=== PATIENT | male | born 1970 | race Caucasian/White ===

== ENCOUNTER 2020-08-23 17:32 | Outpatient (REF) | payer BC, SELFPAY | END 2020-08-23 17:33 | disposition home or self-care (01) | LOC: HO.BBR 17:32 | PROVIDERS: PCP Internal Medicine; Visit Provider Physician Assistant Medical | DX: Z13.89 Encounter for screening for other disorder (principal) ==

== ENCOUNTER 2020-08-24 08:07 | Outpatient (REF) | payer SELFPAY ==
[2020-08-24 08:52] LABS: Cholesterol 182 mg/dL
== END 2020-08-24 08:08 | disposition home or self-care (01) ==
LOC: HO.LNC 08:07
PROVIDERS: Visit Provider Pathology Anatomic Pathology & Clinical Pathology
DX: Z13.220 Encounter for screening for lipoid disorders (principal)
CPT/HCPCS: 82465

== ENCOUNTER 2021-02-16 15:40 | Outpatient (REF) | payer BC, SELFPAY | END 2021-02-16 15:41 | disposition home or self-care (01) | LOC: HO.BBR 15:40 | PROVIDERS: Visit Provider Internal Medicine Hematology & Oncology | DX: Z13.89 Encounter for screening for other disorder (principal) ==

== ENCOUNTER 2021-04-13 15:40 | Outpatient (REF) | payer BC, SELFPAY | END 2021-04-13 15:41 | disposition home or self-care (01) | LOC: HO.BBR 15:40 | PROVIDERS: PCP Internal Medicine; Visit Provider Internal Medicine Hematology & Oncology | DX: Z13.89 Encounter for screening for other disorder (principal) ==

== ENCOUNTER 2021-06-12 15:42 | Outpatient (REF) | payer BC, SELFPAY | END 2021-06-12 15:43 | disposition home or self-care (01) | LOC: HO.BBR 15:42 | PROVIDERS: Visit Provider Internal Medicine Hematology & Oncology | DX: Z13.89 Encounter for screening for other disorder (principal) ==

== ENCOUNTER 2021-08-07 15:10 | Outpatient (REF) | payer BC, SELFPAY | END 2021-08-07 15:11 | disposition home or self-care (01) | LOC: HO.BBR 15:10 | PROVIDERS: Visit Provider Internal Medicine Hematology & Oncology | DX: Z13.89 Encounter for screening for other disorder (principal) ==

== ENCOUNTER 2021-10-02 15:04 | Outpatient (REF) | payer BC, SELFPAY | END 2021-10-02 15:05 | disposition home or self-care (01) | LOC: HO.BBR 15:04 | PROVIDERS: Visit Provider Internal Medicine Hematology & Oncology | DX: Z13.89 Encounter for screening for other disorder (principal) ==

== ENCOUNTER 2021-11-28 15:35 | Outpatient (REF) | payer BC, SELFPAY | END 2021-11-28 15:36 | disposition home or self-care (01) | LOC: HO.BBR 15:35 | PROVIDERS: Visit Provider Internal Medicine Hematology & Oncology | DX: Z13.89 Encounter for screening for other disorder (principal) ==

== ENCOUNTER 2022-05-28 13:55 | Outpatient (REF) | payer BC, SELFPAY | END 2022-05-28 13:56 | disposition home or self-care (01) | LOC: HO.BBR 13:55 | PROVIDERS: Visit Provider Internal Medicine Hematology & Oncology | DX: Z13.89 Encounter for screening for other disorder (principal) ==

== ENCOUNTER 2022-07-26 14:44 | Outpatient (REF) | payer BC, SELFPAY | END 2022-07-26 14:45 | disposition home or self-care (01) | LOC: HO.BBR 14:44 | PROVIDERS: Visit Provider Internal Medicine Hematology & Oncology | DX: Z13.89 Encounter for screening for other disorder (principal) ==

== ENCOUNTER 2022-09-25 14:54 | Outpatient (REF) | payer BC, SELFPAY | END 2022-09-25 14:55 | disposition home or self-care (01) | LOC: HO.BBR 14:54 | PROVIDERS: Visit Provider Internal Medicine Hematology & Oncology | DX: Z13.89 Encounter for screening for other disorder (principal) ==

== ENCOUNTER 2022-11-26 14:59 | Outpatient (REF) | payer BC, SELFPAY | END 2022-11-26 15:00 | disposition home or self-care (01) | LOC: HO.BBR 14:59 | PROVIDERS: Visit Provider Internal Medicine Hematology & Oncology | DX: Z13.89 Encounter for screening for other disorder (principal) ==

== ENCOUNTER 2023-01-24 14:54 | Outpatient (REF) | payer BC, SELFPAY | END 2023-01-24 14:55 | disposition home or self-care (01) | LOC: HO.BBR 14:54 | PROVIDERS: Visit Provider Internal Medicine Hematology & Oncology | DX: Z13.89 Encounter for screening for other disorder (principal) ==

== ENCOUNTER 2023-03-28 15:08 | Outpatient (REF) | payer BC, SELFPAY | END 2023-03-28 15:09 | disposition home or self-care (01) | LOC: HO.BBR 15:08 | PROVIDERS: Visit Provider Internal Medicine Hematology & Oncology | DX: Z13.89 Encounter for screening for other disorder (principal) ==

== ENCOUNTER 2023-09-02 13:53 | Outpatient (REF) | payer BC, SELFPAY | END 2023-09-02 13:54 | disposition home or self-care (01) | LOC: HO.BBR 13:53 | PROVIDERS: Visit Provider Internal Medicine Hematology & Oncology | DX: Z13.89 Encounter for screening for other disorder (principal) ==

== ENCOUNTER 2023-11-04 14:44 | Outpatient (REF) | payer BC, SELFPAY | END 2023-11-04 14:45 | disposition home or self-care (01) | LOC: HO.BBR 14:44 | PROVIDERS: PCP Internal Medicine; Visit Provider Internal Medicine Hematology & Oncology | DX: Z13.89 Encounter for screening for other disorder (principal) ==

== ENCOUNTER 2024-01-06 11:52 | Outpatient (REF) | payer BC, SELFPAY | END 2024-01-06 11:53 | disposition home or self-care (01) | LOC: HO.BBR 11:52 | PROVIDERS: PCP Internal Medicine; Visit Provider Internal Medicine Hematology & Oncology | DX: Z13.89 Encounter for screening for other disorder (principal) ==

== ENCOUNTER 2024-03-09 09:04 | Outpatient (REF) | payer BC, SELFPAY | END 2024-03-09 09:05 | disposition home or self-care (01) | LOC: HO.BBR 09:04 | PROVIDERS: PCP Family Medicine; Visit Provider Internal Medicine Hematology & Oncology | DX: Z13.89 Encounter for screening for other disorder (principal) ==

== ENCOUNTER 2024-05-04 13:56 | Outpatient (REF) | payer BC, SELFPAY | END 2024-05-04 13:57 | disposition home or self-care (01) | LOC: HO.BBR 13:56 | PROVIDERS: PCP Family Medicine; Visit Provider Internal Medicine Hematology & Oncology | DX: Z13.89 Encounter for screening for other disorder (principal) ==

== ENCOUNTER 2024-07-06 12:47 | Outpatient (REF) | payer BC, SELFPAY | END 2024-07-06 12:48 | disposition home or self-care (01) | LOC: HO.BBR 12:47 | PROVIDERS: PCP Family Medicine; Visit Provider Internal Medicine Hematology & Oncology | DX: Z13.89 Encounter for screening for other disorder (principal) ==

== ENCOUNTER 2024-09-07 13:42 | Outpatient (REF) | payer BC, SELFPAY | END 2024-09-07 13:43 | disposition home or self-care (01) | LOC: HO.BBR 13:42 | PROVIDERS: PCP Family Medicine; Visit Provider Internal Medicine Hematology & Oncology | DX: Z13.89 Encounter for screening for other disorder (principal) ==

== ENCOUNTER 2024-11-17 12:53 | Outpatient (REF) | payer BC, SELFPAY | END 2024-11-17 12:54 | disposition home or self-care (01) | LOC: HO.BBR 12:53 | PROVIDERS: PCP Family Medicine; Visit Provider Internal Medicine Hematology & Oncology | DX: Z13.89 Encounter for screening for other disorder (principal) ==

== ENCOUNTER 2025-02-15 12:59 | Outpatient (REF) | payer BC, SELFPAY | END 2025-02-15 13:00 | disposition home or self-care (01) | LOC: HO.BBR 12:59 | PROVIDERS: PCP Family Medicine; Visit Provider Internal Medicine Hematology & Oncology | DX: Z13.89 Encounter for screening for other disorder (principal) ==

== ENCOUNTER 2025-04-30 14:50 | Outpatient (REF) | payer BC, SELFPAY ==
--- OUTSIDE RECORDS SUMMARY | 2025-04-30 14:53 | XMS_ITS | Encounter Summary ---
Author Organization [facility] Address [address] [place] [address] Phone Care Team Providers Care Medical Library Assistant Name Role Phone Anirudh Fowler DO Unavailable [phone] Salomón Dutton MD Unavailable [phone] Kate Wilkins TAX EVALUATOR Primary Care Provider [phone] Rianna Calhoun SOAP DRIER TENDER Unavailable [phone] Anirudh Fowler DO Unavailable [phone] Alfonzo Hedrick MD Primary Care Provider + [phone] Alfonzo Hedrick MD Unavailable [phone] Encounter Details Date Type Department Care Team (Latest Contact Info) Description 05/27/2019 Transcribe Orders [facility] [address] [place] [address] Anirudh Fowler DO 30 [place] [address] [email or web address] Screening for unspecified condition (Primary Dx) Social History Tobacco Use Types Packs/Day Years Used Date Smoking Tobacco: Never Smokeless Tobacco: Never Alcohol Use Standard Drinks/Week Comments Yes 6 (1 standard drink = 0.6 oz pure alcohol) 3-5 per week of either beeer or wine Sex and Gender Information Value Date Recorded Sex Assigned at Not on file Legal Sex Male 9:33 PM EDT Gender Identity Not on file Sexual Orientation Not on file documented as of this encounter Plan of Treatment Upcoming Encounters Date Type Department Care Team (Late st Contact Info) Description 06/25/2025 8:00 AM EDT Office Visit [facility] at [address] [address] Anirudh Fowler DO 30 [place] [address] [email or web address] 03/11/2026 1:00 PM EDT Office Visit [address] [address] Alfonzo Hedrick MD [address] [place] [address], [address] [place] [address] documented as of this encounter Visit Diagnoses Diagnosis Screening for unspecified condition- Primary documented in this encounter Additional Health Concerns Infection Onset Date Last Indicated Resolved Time CoV-Risk 10/29/2024 10/29/2024 11/09/2024 1:21 AM EST Influenza A 10/29/2024 10/29/2024 11/05/2024 1:27 AM EST Assessment Noted Time PHQ-2 Depression Total Score: 0 03/31/20 19 1:58 PM EDT documented as of this encounter Care Teams Medical Library Assistant Relationship Specialty Start Date End Date Kate Wilkins NP [address] [place] [address] PCP - General Family Medicine 04/30/19 10/21/23 Alfonzo Hedrick MD [address] [place] [address], [address] [place] [address] [id number] PCP - General Family Medicine 10/22/23 Anirudh Fowler DO [address] [place] [address] [email or web address] Primary Oncologist Hematology and Oncology 06/05/18 06/07/22 Salomón Dutton MD [address] [place] [address] [email or web address] Insurance Assigned Provider 01/31/19 08/05/22 Rianna Calhoun FNP [address] [place] [address] [email or web address] Nurse Practitioner Medical Oncology 06/01/21 Anirudh Fowler DO [address] [place] [phone] [email or web address] Primary Oncologist Hematology and Oncology 06/05/18 Alfonzo Hedrick MD [address] [place] [address], [address] [place] [address] [email or web address] Insurance Assigned Provider 03/07/24 documented as of this encounter Additional Source Comments The information contained in this document represents components of the legal health record. It is not the complete legal health record.[facility]
== END 2025-04-30 14:51 | disposition home or self-care (01) ==
LOC: HO.BBR 14:50
PROVIDERS: PCP Family Medicine; Visit Provider Internal Medicine Hematology & Oncology
DX: Z13.89 Encounter for screening for other disorder (principal)

== ENCOUNTER 2025-08-02 15:20 | Outpatient (REF) | payer BC, SELFPAY ==
--- OUTSIDE RECORDS SUMMARY | 2025-08-02 16:36 | XMS_ITS | Encounter Summary ---
Author Organization [facility] Address [address] [facility] [address] [place] [address] Phone Care Team Providers Care Insurance Executive Name Role Phone Anirudh Fowler DO Unavailable [phone] Alfonzo Hedrick MD Primary Care Provider [phone] Alfonzo Hedrick MD Unavailable [phone] Reason for Referral * Consultation (Within 2 weeks) - Authorized Specialty Diagnoses / Procedures Referred By Yoon li Referred To Contact Diagnoses Plaque psoriasis Alfonzo Hedrick MD [address] [facility], [address] [place] [address] Phone: tel: fax: mailto:[email or web address] Judie Regalado PA [facility] 5 [place] [address] Phone: tel: fax: Referral ID Status Reason Start Date Expiration Date V isits Requested Visits Authorized [id number] Authorized 06/21/2025 06/21/2026 12 12 Scheduling Instructions Appt 06/23/2025 Reason for Visit * Reason Onset Date Comments Referral 07/02/2025 Encounter Details Date Type Department Care Team ([facility] st Contact Info) Description 07/02/2025 Telephone [employer] [address] [place] [address] Alfonzo Hedrick MD [address] [facility], [address] [place] [address] [email or web address] Referral Social History Tobacco Use Types Packs/Day Years Used Date Smoking Tobacco: Never Smokeless Tobacco: Never Alcohol Use Standard Drinks/Week Comments Yes 3 (1 standard drink = 0.6 oz pure alcohol) 3-5 per week of either beer or wine Child or Family Care Answer Date Record ed Do you have problems with on e of the following making it difficult for you to work, study, or receive health care? No 03/05/2025 Education Answer Date Recorded Are you interested in help w ith more adult education (for example, completing high school, GED, job training, learning the [place] language, technical skills, or developing parenting skills)? No 03/05/2025 Are you concerned about learning? Not on file 03/05/2025 No 03/05/2025 Yes 03/05/2025 Food Answer Date Recorded Within the past 6 months we worried whether our food would run out before we got money to buy more. Never True 03/05/2025 Within the past 6 months the food we bought just didn't last and we didn't have enough money to get more. Never True Residential Stability Answer Date Recor ded What is your housing situation today? I have deng sing 03/05/2025 How many times have you move d in the past 12 months? Zero (I did not move) 03/05/2025 Paying for Meds Answer Date Recorded Do you have trouble paying for medicines? No 03/05/2025 Paying Utility Bills Answer Date Record ed Do you have trouble paying your heating or elect ricity bill? No 03/05/2025 Transportation Answer Date Recorded Has the lack of transportati on kept you from medical appointments or from getting medications? No 03/05/2025 Unemployment Answer Date Recorded Are you currently unemployed or working on a part-time or temporary basis, and looking for work? No 12/02/2021 Digital Access Answer Date Recorded No 03/05/2025 Yes 03/05/2025 Do you have reliable internet access at home? Ye s 03/05/2025 Do you have a device (e.g., phone, tablet, computer) with a working camera? Yes 03/05/2025 Intimate Partner Violence Answer Date R ecorded Denied Basic Needs Not on file 03/05/2025 In the past 12 months have y ou been in a relationship with a person who hurts, threatens, or tries to control you? No 03/05/2025 Worried food would run out Not on file 03/05 In the past 12 months have y ou been in a relationship with a person who hurts, threatens, or tries to control you? No 03/05/2025 Sex and Gender Information Value Date Recorded Sex Assigned at Not on file Legal Sex Male 9:33 PM EDT Gender Identity Not on file Sexual Orientation Not on file documented as of this encounter Progress Notes * Sofy Bolton CNP - 07/02/2025 12:15 PM EDT VCS Reviewed: Referral signed. Thank you Sofy Bolton CNP 07/02/25 12:15 PM * Malcolm Jones - 07/02/2025 11:23 AM EDT Referral Request 1. Name of the office where the patient has been seen/requests to be seen: [facility] 2. Reason for referral/specialist appointment and the diagnosis code: L40.0 2A. Have you seen this provider before for this same problem? YES/NO: no 2B. If this is a new problem, is your PCP aware of your symptoms? YES/NO: yes 3. Date of appointment(s):06/23/2025 4. Name of specialist provider: Judie Regalado 5. NPI number to enter for referral authorization (enter n/a if not available): [id number] 6. Number of visits requested for referral: 6 7. Fax number of specialist office to send referral authorization: [phone] documented in this encounter Plan of Treatment Upcoming Encounters Date Type Department Care Team (Late st Contact Info) Description 03/11/2026 1:00 PM EDT Office Visit [address] [address] Alfonzo Hedrick MD [address] [facility], [address] [place] [address] [email or web address] 06/24/2026 8:00 AM EDT Office Visit [facility] 30 [place] [address] Anirudh Fowler DO 30 [place] [address] [email or web address] Scheduled Referrals Name Type Priority Associated Diagnoses Order Schedule External Referral to Dermatology ([facility]) Outpatient Referral Routine Plaque psoriasis Ordered: 07/02/2025 documented as of this encounter Visit Diagnoses Diagnosis Plaque psoriasis- Primary Other psoriasis documented in this encounter Additional Health Concerns Assessment Noted Time PHQ-2 Depression Total Score: 0 03/05/20 25 12:21 PM EDT documented as of this encounter Care Teams Insurance Executive Relationship Specialty Start Date End Date Alfonzo Hedrick MD [address] [place] [address], [address] [address] [email or web address] PCP - General Family Medicine 10/22/23 Anirudh Fowler DO [address] [place] [address] [email or web address] Primary Oncologist Hematology and Oncology 06/05/18 Alfonzo Hedrick MD [address] [place] [address], [address] [address] [email or web address] Insurance Assigned Provider 03/07/24 documented as of this encounter Additional Source Comments The information contained in this document represents components of the legal health record. It is not the complete legal health record.[facility]
--- OUTSIDE RECORDS SUMMARY | 2025-08-02 16:36 | XMS_ITS | Clinical Summary ---
Author Organization [facility] Address [address] [address] Phone Care Team Providers Care Jewelry Bench Molder Name Role Phone Anirudh Fowler DO Unavailable [phone] Alfonzo Hedrick MD Primary Care Provider [phone] Alfonzo Hedrick MD Unavailable [phone] Allergies Active Allergy Reactions Criticality Noted Date Comments Penicillins Hives High 10/29/2017 Medications therapeutic multivitamin tablet Take 1 tablet by mouth daily. Active calcipotriene-be tamethasone (TACLONEX) ointmentIndicati ons:Rash and other nonspecific skin eruption Apply topically daily. 60 g 5 Active efinaconazole 10 % Aníbal Apply 1 Application topically daily. 8 mL 1 5 025 Active Problems Patient Care Coordination No te Formatting of this note migh t be different from the original. Height 184.2cm no shoes taken by OC 06/08/2022 Problem Noted Date Diagnosed Date Eczema of lower leg 12/02/2021 Hereditary hemochromatosis 10/29/2017 Onychomycosis 10/29/2017 Encounters Date Type Department Care Team Description 07/02/2025 Telephone [employer] [facility] [address] [place] [address] Alfonzo Hedrick MD Referral 06/25/2025 8:00 AM EDT Office Visit [facility] at [address] [address] Anirudh Fowler DO Hereditary hemochromatosis (Primary Dx) 06/25/2025 7:50 AM EDT - 06/25/2025 11:59 PM EDT Hospital Encounter [facility] [address] [address] Anirudh Fowler DO Discharge Disposition: Home or Self Care 06/20/2025 4:20 PM EDT Telemedicine [facility] [address] [place] [address] Rash and other nonspecific skin eruption (Primary Dx) 06/20/2025 Telephone [facility] [address] [place] [address] Amanda Kong CNP Administrative (After Hours Call ) 06/20/2025 Nurse Triage [facility] [address] [facility] [address] [place] [address] Blanca Byrne, MARIBEL Rash (After Hours Call) 06/18/2025 Orders Only [facility] at [address] [address] Jenny David Hereditary hemochromatosis (Primary Dx) 05/03/2025 Orders Only [facility] at [address] [address] Provider, MD Kaleigh from Last 3 Months Immunizations Immunization Administration Dates Next Due COVID-19 (Pre-07/22) Pfizer Vaccine, mRNA, PF 11/16/2020,10/26/2020 INFLUENZA, SPLIT VIRUS, TRIVALENT PF 06/18/2016, 07/18/2015 Influenza Quadrivalent MDCK w/Preservative IM 07/29/2020 Influenza Quadrivalent Preservative Free IM 01/2020,10/30/2018,07/12/2017 PPD Test 02/23/2015 Tdap 04/27/2025,02/23/2015 Family History Medical History Relation Comments Hemochromatosis Brother Cancer Father Cancer Maternal Aunt CV disease Maternal Grandfather Diabetes mellitus Maternal Grandfather CV disease Maternal Grandmother CV disease Maternal Uncle 1 Hypertension Maternal Uncle 1 Diabetes mellitus Mother Hypertension Mother Kidney disease Mother Parkinson's disease Mother CV disease Paternal Grandfather Hemochromatosis Sister Relation Status Comments Brother Alive Father (Age 62) lung smoker Maternal Aunt Maternal Grandfather Maternal Grandmother Maternal Uncle 1 Maternal Uncle 2 Mother Paternal Grandfather Sister Alive Social History Tobacco Use Types Packs/Day Years Used Date Smoking Tobacco: Never Smokeless Tobacco: Never Tobacco Cessation:Counseling Given: Not Answered Alcohol Use Standard Drinks/Week Comments Yes 3 [...] high school, GED, job training, learning the Malawian language, technical skills, or developing parenting skills)? [...] your housing situation today? I have deng hua 03/05/2025 How many times have you move [...] have reliable internet access at home? Ye himanshu 03/05/2025 Do you have a device (e.g., [...] on file Sexual Orientation Not on file Last Filed Vital Signs Vital Sign Reading Time Taken Comments Blood Pressure 127/75 06/25/2025 8:01 AM EDT Pulse 64 06/25/2025 8:01 AM EDT Temperature 35.5 C (95.9 F) 06/25/2025 8:01 AM EDT Respiratory Rate 17 10/29/2024 9:18 AM EST Oxygen Saturation 99% 06/25/2025 8:01 AM EDT Inhaled Oxygen Concentration - - Weight 80.8 kg (178 lb 1.6 oz) 06/25/2025 7:59 A M EDT Height 184.2 cm (6' 0.52 ) 06/25/2025 7:59 AM ED T Body Mass Index 23.81 06/25/2025 7:59 AM EDT Plan of Treatment Upcoming Encounters Date Type Department Care Team (Late st Contact Info) Description 03/11/2026 1:00 PM EDT Office Visit [facility] [address] [place] [address] [place] [address] Alfonzo Hedrcik MD [address] [facility], [address] [place] [address] 06/24/2026 8:00 AM EDT Office Visit [facility] at [address] [address] Anirudh Fowler, DO [address] [place] [address] [email or web address] Health Maintenance Due Date Last Done Comments COLONOSCOPY 12/12/2016 FIT TEST 12/12/2016 FOBT 12/12/2016 SIGMOIDOSCOPY 12/12/2016 VIRTUAL COLONOSCOPY 12/12/2016 PNEUMOCOCCAL VACCINES (50+ years) (1 of 1 - PCV) 12/12/2021 ZOSTER VACCINES (1 of 2) 12/12/2021 INFLUENZA VACCINE (#1) 2025 , 11/04/2019, 10/30/2018, Additional history exists COVID-19 VACCINE (2024- season) 2025 07/19/2021, 11/16/2020, 10/26/2020 DEPRESSION SCREENING 03/05/2026 03/05/2025 COLOGUARD 04/16/2028 04/16/2025 COLORECTAL CANCER SCREENING 04/16/2028 LIPID PANEL 03/11/2030 03/11/2025, 04/1 , 12/20/2020, Additional history exists Adult Td,Tdap Booster 04/27/2035 04/27/2025, 015 RSV VACCINE (1 - 1-dose 75+ series) 12/12/2046 HIV ONE-TIME SCREENING (18-65 YEARS) Completed 11/04/2019 HEPATITIS C SCREENING Completed 12/20/2020, 021 SMOKING STATUS SCREENING (Once After 26 Yrs) Completed 03/05/2025 HEPATITIS A VACCINES Aged Out No long er eligible based on patient's age to complete this topic HIB VACCINES Aged Out No longer eligi ble based on patient's age to complete this topic MENINGOCOCCAL VACCINES (ACWY) Aged Out No longer eligible based on patient's age to complete this topic MENINGOCOCCAL VACCINES (B) Aged Out N o longer eligible based on patient's age to complete this topic Medical Devices Not on file Procedures Procedure Name Priority Date/Time Associated Diagnosis Comments FERRITIN Routine 06/25/2025 7:50 AM EDT Hereditary hemochromatosis COMPREHENSIVE METABOLIC PANEL (CMP) Routine 06/25/2025 7:50 AM EDT Hereditary hemochromatosis CBC AND DIFFERENTIAL Routine 06/25/2025 7:50 AM EDT Hereditary hemochromatosis OUTSIDE LAB Routine 05/03/2025 3:08 PM EDT LIPID PANEL Routine 03/11/2025 8:02 AM EDT Annual physical exam HEPATITIS C ANTIBODY, QUALITATIVE Routine 12/20/2020 8:21 AM EDT Routine medical exam from Last 3 Months or Most Recently Relevant to Health Maintenance Results * Comprehensive metabolic panel (06/25/2025 7:50 AM EDT) SODIUM 140 133 - 146 mmol/L [facility] POTASSIUM 4.3 3.3 - 5.1 mmol/L [facility] CHLORIDE 104 96 - 108 mmol/L [facility] CO2 26 21 - 35 mmol/L [facility] BUN 9 6 - 19 mg/dL [facility] CREATININE 1.00 0.5 - 1.5 mg/dL [facility] GLUCOSE 88 70 - 99 mg/dL [facility] ALBUMIN 4.2 3.9 - 4.8 g/dL [facility] TOTAL PROTEIN 6.9 6.5 - 8.0 g/dL [facility] CALCIUM 9.4 8.4 - 10.3 mg/dL [facility] ALKALINE PHOSPHATASE 57 39 - 117 U/L [facility] TOTAL BILIRUBIN 0.5 0.0 - 1.2 mg/dL [facility] AST 18 0 - 37 U/L [facility] ALT 12 0 - 40 U/L [facility] GLOBULIN 2.7 1 - 4.8 g/dL [facility] EGFR 90 >59 mL/min/1.7 3m2 [facility] Comment:Estimated glomerular filtration rate calculated using the CKD-EPI refit equation. ANION GAP 14 10 - 20 mmol/L [facility] Blood 06/25/2025 7:50 AM EDT 06/25/2025 7:56 AM EDT us Anirudh W Janeth DO LAB BLOOD BKR ORDERABLES Fi nal Result [facility] [address] [place] [address] * (ABNORMAL) CBC and differential (06/25/2025 7:50 AM EDT) WBC 5.49 4.00 - 11.00 K/uL [facility] RBC 4.88 4.50 - 5.90 M/uL [facility] HGB 13.6 13.5 - 17.5 g/dL [facility] HCT 42.2 41.0 - 53.0 % [facility] PLT 251 150 - 450 K/uL [facility] MCV 86.5 80.0 - 100.0 fL [facility] MCH 27.9 27.0 - 31.0 pg [facility] MCHC 32.2 32.0 - 36.0 g/dL [facility] RDW 14.3 11.5 - 14.5 % [facility] MPV 10.3 8.4 - 12.0 fL [facility] NRBC 0.00 0.00 /100 WBCs [facility] ABSOLUTE NRBC 0.00 0.00 K/uL [facility] DIFF METHOD Auto [facility] NEUTS 48.7 48.0 - 76.0 % [facility] LYMPHS 31.7 18.0 - 41.0 % [facility] MONOS 11.7(H) 4.0 - 11.0 % [facility] EOS 6.4(H) 0.0 - 5.0 % [facility] BASOS 1.1 0.0 - 1.5 % [facility] Granulocytes, immature (%) 0.4 0.0 - 0.9 % [facility] ABSOLUTE NEUTS 2.68 1.92 - 7.60 K/uL [facility] ABSOLUTE LYMPHS 1.74 0.72 - 4.10 K/uL [facility] ABSOLUTE MONOS 0.64 0.16 - 1.10 K/uL [facility] ABSOLUTE EOS 0.35 0.00 - 0.50 K/uL [facility] ABSOLUTE BASOS 0.06 0.00 - 0.15 K/uL [facility] Granulocytes, immature 0.02 0.00 - 0.09 K/uL [facility] Blood 06/25/2025 7:50 AM EDT 06/25/2025 7:56 AM EDT Anirudh Fowler DO LAB BLOOD BKR ORDERABLES Fi nal Result Performing Organization Address City/[facility]/ZIP Co de Phone Number [address] [address] * (ABNORMAL) Ferritin (06/25/2025 7:50 AM EDT) FERRITIN 14(L) 30 - 400 ug/L [facility] Blood 06/25/2025 7:50 AM EDT 06/25/2025 7:56 AM EDT Anirudh Fowler DO LAB BLOOD BKR ORDERABLES Fi nal Result Performing Organization Address [facility] Co de Phone Number [address] [address] * Outside Lab (05/03/2025 3:08 PM EDT) Historical Provider LAB BLOOD BKR ORDERABLES Final Result * Lipid panel (03/11/2025 8:02 AM EDT) HDL 38 mg/dL [facility] Comment: Interpretation <40 mg/dL: Low HDL cholesterol (major risk factor for CHD) Greater than or equal to 60 mg/dL: High HDL cholesterol ( negative risk factor for CHD) HDL - cholesterol is affected by a number of factors, e.g. smoking, excerise, hormones, sex and age. CHOLESTEROL 185 0 - 240 mg/dL [facility] TRIGLYCERIDES 108 30 - 160 mg/dL [facility] LDL 125 50 - 129 mg/dL [facility] Comment: LDL levels in terms of risk for coronary heart disease: <100 mg/dL: Optimal 100-129 mg/dL: Near or above optimal 130-159 mg/dL: Borderline high 160-189 mg/dL: High >190 mg/dL: Very High CARDIAC RISK RATIO 4.9 3.4 - 5.0 [facility] Blood 03/11/2025 8:02 AM EDT 03/11/2025 8:04 AM EDT us Alfonzo Hedrick MD LAB BLOOD BKR ORDERABLES F inal Result [address] [address] * Hepatitis C antibody, qualitative (12/20/2020 8:21 AM EDT) HCV NON-REACTIV E NON-REACTI VE [facility] Blood 12/20/2020 8:21 AM EDT 12/20/2020 8:25 AM EDT us Kate Wilkins NP LAB BLOOD BKR ORDERABLES Final Result Performing Organization Address City/[facility]/ZIP Co de Phone Number [address] [address] from Last 3 Months or Most Recently Relevant to Health Maintenance Insurance [employer] [facility] LIMITED NETWORK HMO [employer] D[employer] Care Teams Jewelry Bench Molder Relationship Specialty Start Date End Date Hedrick, Alfonzo V., MD [address] [place] [address], [address] [place] [address] [email or web address] PCP - General Family Medicine 10/22/23 Anirudh Fowler DO [address] [place] [address] [email or web address] Primary Oncologist Hematology and Oncology 06/05/18 Alfonzo Hedrick MD [address] [place] [address], [address] [place] [address] [email or web address] Insurance Assigned Provider 03/07/24 Additional Source Comments The information contained in this document represents components of the legal health record. It is not the complete legal health record.[facility]
--- OUTSIDE RECORDS SUMMARY | 2025-08-02 16:36 | XMS_ITS | Encounter Summary ---
Author Organization [facility] Address [address] [place] [address] Phone Care Team Providers Care Chlorine Operator Name Role Phone CalhounRianna haynes Shabana MATHEMATICS TEACHER Unavailable [phone] Anirudh Fowler DO Unavailable [phone] Alfonzo Hedrick MD Primary Care Provider [phone] Alfonzo Hedrick MD Unavailable [phone] Encounter Details Date Type Department Care Team (Late st Contact Info) Description 10/22/2024 Procedure Pass [facility] Endoscopy Admitting Dept Virtual Department [address] [place], [place] [id number] Social History Tobacco Use Types Packs/Day Years [...] work, study, or receive health care? No 03/04/2024 Education Answer Date Recorded Are you interested in help w ith more adult education (for example, completing high school, GED, job training, learning the [place] language, technical skills, or developing parenting skills)? No 03/04/2024 Are you concerned about learning? Not on file 03/04/2024 No 03/04/2024 Yes 03/04/2024 Food Answer Date Recorded Within the past 6 months we worried whether our food would run out before we got money to buy more. Never True 03/04/2024 Within the past 6 months the food we bought just didn't last and we didn't have enough money to get more. Never True Residential Stability Answer Date Recor ded What is your housing situation today? I have deng hua 03/04/2024 How many times have you move d in the past 12 months? Zero (I did not move) 03/04/2024 Paying for Meds Answer Date Recorded Do you have trouble paying for medicines? No 03/04/2024 Paying Utility Bills Answer Date Record ed Do you have trouble paying your heating or elect ricity bill? No 03/04/2024 Transportation Answer Date Recorded Has the lack of transportati on kept you from medical appointments or from getting medications? No 03/04/2024 Unemployment Answer Date Recorded Are you currently unemployed or working on a part-time or temporary basis, and looking for work? No 12/02/2021 Digital Access Answer Date Recorded No 03/04/2024 Yes 03/04/2024 Do you have reliable internet access at home? Ye s 03/04/2024 Do you have a device (e.g., phone, tablet, computer) with a working camera? Yes 03/04/2024 Intimate Partner Violence Answer Date R ecorded Denied Basic Needs Not on file 12/03/2023 In the past 12 months have y ou been in a relationship with a person who hurts, threatens, or tries to control you? No 12/03/2023 Worried food would run out Not on file 12/02 In the past 12 months have y ou been in a relationship with a person who hurts, threatens, or tries to control you? No 12/03/2023 Sex and Gender Information Value Date Recorded Sex Assigned at Not on file Legal Sex Male 9:33 PM EDT Gender Identity Not on file Sexual Orientation Not on file documented as of this encounter Plan of Treatment Upcoming Encounters Date Type Department Care Team (Late st Contact Info) Description 03/11/2026 1:00 PM EDT Office Visit [facility] [address] [place] [address] Alfonzo Hedrick MD [address] [facility], [address] [place] [id number] [email or web address] 06/24/2026 8:00 AM EDT Office Visit [facility] [address] [place] [address] Anirudh Fowler DO [address] [place] [address] [email or web address] documented as of this encounter Visit Diagnoses Not on filedocumented in this encounter Additional Health Concerns Infection Onset Date Last Indicated Resolved Time CoV-Risk 10/29/2024 10/29/2024 11/09/2024 1:21 AM EST Influenza A 10/29/2024 10/29/2024 11/05/2024 1:27 AM EST Assessment Noted Time PHQ-2 Depression Total Score: 1 03/04/20 24 2:30 PM EDT documented as of this encounter Care Teams Chlorine Operator Relationship Specialty Start Date End Date Alfonzo Hedrick MD [address] [place] [address], [address] [address] [email or web address] PCP - General Family Medicine 10/22/23 Rianna Calhoun MATHEMATICS TEACHER [address] [place] [address] [email or web address] Nurse Practitioner Medical Oncology 06/01/21 06/17/25 Anirudh Fowler DO [address] [place] [address] [email or web address] Primary Oncologist Hematology and Oncology 06/05/18 Alfonzo Hedrick MD [address] [place] [address], [address] [address] [email or web address] Insurance Assigned Provider 03/07/24 documented as of this encounter Additional Source Comments The information contained in this document represents components of the legal health record. It is not the complete legal health record.[facility]
--- OUTSIDE RECORDS SUMMARY | 2025-08-02 16:36 | XMS_ITS | Encounter Summary ---
Author Organization [facility] Address [address] [place] [address] Phone Care Team Providers Care Spout Liner Helper Name Role Phone Anirudh Fowler DO Unavailable Salomón Dutton MD Unavailable [phone] Kate Wilkins ANIMAL DAYCARE PROVIDER Primary Care Provider [phone] Rianna Calhoun ANIMAL DAYCARE PROVIDER Unavailable [phone] Anirudh Fowler DO Unavailable [phone] Alfonzo Hedrick MD Primary Care Provider [phone] Alfonzo Hedrick MD Unavailable [phone] Encounter Details Date Type Department Care Team (Latest Contact Info) Description 05/27/2019 Transcribe Orders [facility] [address] [place] [address] Anirudh Fowler DO [address] [place] [address] [email or web address] Screening for unspecified condition (Primary Dx) Social [...] Description 03/11/2026 1:00 PM EDT Office Visit [address] [address] Alfonzo Hedrick MD [address] [place] [address], [address] [place] [address] 06/24/2026 8:00 AM EDT Office Visit [facility] at [address] [address] Anirudh Fowler DO [address] [place] [address] [email or web address] documented as of this encounter Visit Diagnoses Diagnosis Screening for unspecified condition- Primary documented in this encounter Additional Health Concerns Infection Onset Date Last Indicated Resolved Time CoV-Risk 10/29/2024 10/29/2024 11/09/2024 1:21 AM EST Influenza A 10/29/2024 10/29/2024 11/05/2024 1:27 AM EST Assessment Noted Time PHQ-2 Depression Total Score: 0 03/31/20 19 1:58 PM EDT documented as of this encounter Care Teams Spout Liner Helper Relationship Specialty Start Date End Date Kate Wilkins NP [address] [place] [address] PCP - General Family Medicine 04/30/19 10/21/23 Alfonzo Hedrick MD [address] [place] [address], [address] [place] [address] PCP - General Family Medicine 10/22/23 Anirudh Fowler DO [address] [place] [address] [email or web address] Primary Oncologist Hematology and Oncology 06/05/18 06/07/22 Salomón Dutton MD [address] [place] [address] [email or web address] Insurance Assigned Provider 01/31/19 08/05/22 Rianna Calhoun NP [address] [place] [address] [email or web address] Nurse Practitioner Medical Oncology 06/01/21 06/17/25 Anirudh Fowler DO [address] [place] [address] [email or web address] Primary Oncologist Hematology and Oncology 06/05/18 Alfonzo Hedrick MD [address] [place] [address], [address] [place] [address] [email or web address] Insurance Assigned Provider 03/07/24 documented as of this encounter Additional Source Comments The information contained in this document represents components of the legal health record. It is not the complete legal health record.[facility]
== END 2025-08-02 15:21 | disposition home or self-care (01) ==
LOC: HO.BBR 15:20
PROVIDERS: PCP Family Medicine; Visit Provider Internal Medicine Hematology & Oncology
DX: Z13.89 Encounter for screening for other disorder (principal)